=== PATIENT | male | born 1955 | race Caucasian/White ===

== ENCOUNTER 2021-12-25 15:55 | Observation (INO) | payer BC ==
[2021-12-25] MEDS ORDERED: fentaNYL 50 MCG/ML SDV ONE (16:09)
[2021-12-25 16:49] LABS: BLOOD UREA NITROGEN,BUN 23 mg/dL (7.0-18.0); CARBON DIOXIDE,CO2 28.7 mmol/L (21.0-32.0); CHLORIDE,CL 104 mmol/L (98-107); ESTIMATED GFR 55 mL/min (>60); GLUCOSE RANDOM 104 mg/dL (74-106); LIPASE 113 U/L (73-393); POTASSIUM,K 3.5 mmol/L (3.5-5.1); SODIUM,NA 141 mmol/L (136-148)
[2021-12-25] MEDS ORDERED: Acetaminophen 325 MG Tab PO ONE (17:29)
[2021-12-25] MEDS ORDERED: Ibuprofen 400 MG Tab PO ONE (17:29)
[2021-12-25] MEDS ORDERED: fentaNYL 50 MCG/ML SDV IVPUSH ONE ×2 (17:33→17:43)
[2021-12-25] MEDS ORDERED: Sodium Chloride 0.9% 10 ML Syringe FLUSH PRN (18:25)
[2021-12-25] MEDS ORDERED: Sodium Chloride 0.9% 2.5 ML Syringe FLUSH PRN (18:25)
[2021-12-25] MEDS ORDERED: HYDROmorphone 2 MG/ML Syringe IVPUSH PRN (18:25)
[2021-12-25] MEDS ORDERED: Ondansetron 4 MG/2 ML SDV IVPUSH PRN (18:25)
[2021-12-25] MEDS ORDERED: Sodium Chloride 0.9% 20 ML SDV IV PRN (18:25)
[2021-12-25] MEDS ORDERED: diphenhydrAMINE 50 MG/ML SDV IVPUSH PRN (18:25)
[2021-12-25] MEDS ORDERED: Bisacodyl 5 MG Tab PO PRN (18:25)
[2021-12-25] MEDS ORDERED: Ketorolac 30 MG/ML SDV IM SCH (18:30)
[2021-12-25] MEDS ORDERED: Iopamidol 755 Mg/ML 100 ML Bottle IVPUSH ONE (18:57)
[2021-12-25] MEDS: Cyclobenzaprine 10 MG Tab PO SCH (19:42)
[2021-12-25] MEDS: Lisinopril 10 MG Tab PO SCH ×2 (20:37→22:47)
[2021-12-25] MEDS: Acetaminophen/oxyCODONE 325-5 MG Tab PO PRN (21:58)
[2021-12-26] MEDS ORDERED: Ketorolac 30 MG/ML SDV IVPUSH SCH (00:30)
[2021-12-26] MEDS: Ketorolac 30 MG/ML SDV IVPUSH SCH ×3 (01:25→12:14)
[2021-12-26] MEDS: Cyclobenzaprine 10 MG Tab PO SCH ×2 (01:30→09:41)
[2021-12-26] MEDS: Acetaminophen/oxyCODONE 325-5 MG Tab PO PRN (05:38)
[2021-12-26] MEDS ORDERED: Metoprolol Succinate 50 MG Tab.ER PO SCH (09:00)
[2021-12-26] MEDS ORDERED: Hydrochlorothiazide 12.5 MG Cap PO SCH (09:00)
[2021-12-26] MEDS ORDERED: Olmesartan 20 MG Tab PO SCH (09:00)
[2021-12-26 09:40] VITALS: BP 114/76; PULSE 75
== END 2021-12-26 14:00 | disposition home or self-care (01) ==
LOC: MW.ED 15:55 → MW.MS 18:25
PROVIDERS: ADMIT Surgery; ATTEND Surgery
DX: S22.42XA Multiple fractures of ribs, left side, initial encounter for closed fracture (principal); M25.512 Pain in left shoulder; I48.91 Unspecified atrial fibrillation; I10 Essential (primary) hypertension; Z79.899 Other long term (current) drug therapy; Z88.5 Allergy status to narcotic agent; Z79.01 Long term (current) use of anticoagulants; Z87.891 Personal history of nicotine dependence; Z98.890 Other specified postprocedural states; Z20.822 Contact with and (suspected) exposure to COVID-19
CPT/HCPCS: 36415; 70450; 71045; 71046; 71260; 72125; 73020; 74177; 80053; 81001; 83690; 85027; 87635; 96372; 96374; 96375; 96376; 99285; A9270; G0378; J1885; J3010; Q9967; U0002